=== PATIENT | female | born 1995 | race Caucasian/White ===

== ENCOUNTER 2017-08-19 16:57 | Emergency (ER) | payer OTHER, BC ==
[~2017-08-19] VITALS: Ht 170.2 cm; Wt 90.7 kg
[2017-08-19 17:11] VITALS: BP 139/88
[2017-08-19] MEDS ORDERED: IBUP800T19 PO (17:46)
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
== END 2017-08-19 17:52 | disposition home or self-care (01) ==
LOC: ER 16:57
DX: S20.212A Contusion of left front wall of thorax, initial encounter (principal); S80.12XA Contusion of left lower leg, initial encounter; S90.812A Abrasion, left foot, initial encounter; R51 Headache; Z88.8 Allergy status to other drugs, medicaments and biological substances; Z88.5 Allergy status to narcotic agent; V49.49XA Driver injured in collision with other motor vehicles in traffic accident, initial encounter; Y93.89 Activity, other specified; Y99.8 Other external cause status; Y92.89 Other specified places as the place of occurrence of the external cause
CPT/HCPCS: 99282

== ENCOUNTER 2017-08-23 19:54 | Emergency (ER) | payer BC, OTHER ==
[~2017-08-23] VITALS: Ht 170.2 cm; Wt 90.7 kg
[~2017-08-23 19:54] MED LIST: IBUP800T19 PO
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
[2017-08-23] MEDS ORDERED: CYCL-331 PO (20:42)
[2017-08-23 20:55] VITALS: BP 137/46
== END 2017-08-23 21:00 | disposition home or self-care (01) ==
LOC: ER 19:54
DX: M54.2 Cervicalgia (principal); R42 Dizziness and giddiness; Z88.8 Allergy status to other drugs, medicaments and biological substances; Z88.4 Allergy status to anesthetic agent; V49.69XA Unspecified car occupant injured in collision with other motor vehicles in traffic accident, initial encounter; Y93.89 Activity, other specified; Y99.8 Other external cause status; Y92.488 Other paved roadways as the place of occurrence of the external cause
CPT/HCPCS: 72040; 99284

== ENCOUNTER 2019-08-26 22:52 | Emergency (ER) | payer SELFPAY ==
[~2019-08-26] VITALS: Ht 170.2 cm; Wt 98.7 kg
[2019-08-26 22:52] VITALS: BP 148/89
[~2019-08-26 22:52] MED LIST changes: +CYCL-331 PO
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
== END 2019-08-27 00:05 | disposition home or self-care (01) ==
LOC: ER 22:52
DX: S90.31XA Contusion of right foot, initial encounter (principal); Z88.8 Allergy status to other drugs, medicaments and biological substances; Z88.4 Allergy status to anesthetic agent; W20.8XXA Other cause of strike by thrown, projected or falling object, initial encounter; Y93.89 Activity, other specified; Y92.89 Other specified places as the place of occurrence of the external cause; Y99.8 Other external cause status
CPT/HCPCS: 73630; 99283

== ENCOUNTER → 2019-09-16 | Outpatient (CLI) | payer BC ==
[2019-08-26 22:52] VITALS: BP 148/89
--- NOTE | 2019-09-16 11:04 | RAD ---
3 views right foot 09/16/2019 12:00 AM Indication: Reason: INJURY, RIGHT DORSAL PAIN / Spl. Instructions: / History: Comparison: None Findings: There is no acute fracture or dislocation. Articular surfaces are uninterupted and smooth. Soft tissues are unremarkable. Impression: No evidence of acute osseous abnormality. Electronically signed by: Devon Duran MD (09/16/2019 11:02 AM) [id number]
== END | disposition home or self-care (01) ==
LOC: DXRAD 10:24
PROVIDERS: ATTEND Physician Assistant
DX: M79.671 Pain in right foot (principal)
CPT/HCPCS: 73630

== ENCOUNTER 2019-10-16 06:37 | Emergency (ER) | payer BC ==
[~2019-10-16] VITALS: Ht 170.2 cm; Wt 98.7 kg
[2019-10-16 06:53] VITALS: BP 145/94
[2019-10-16] MEDS ORDERED: FAMO-63 PO (07:13)
[2019-10-16] MEDS ORDERED: PRED20TA PO (07:13)
--- NOTE | 2019-10-16 07:13 | PHYS DOC ---
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 Patient ate a food at 4:00 this morning. Patient says she had allergic reaction to garlic in the past. Patient did not realize that there was garlic in the food this morning. Patient feels scratchy in the back of her throat, denies any trouble breathing, denies any tongue swelling or trouble swallowing. Patient took 1 dose of Benadryl at work before coming here. Review of Systems: Review of Systems: Constitutional: Denies fever or chills Eyes: Denies change in visual acuity HENT: Denies nasal congestion or sore throat Respiratory: Denies cough or shortness of breath Cardiovascular: Denies chest pain or edema GI: Denies abdominal pain, nausea, vomiting, bloody stools or diarrhea : Denies dysuria Musculoskeletal: Denies back pain or joint pain Integument: Denies rash Neurologic: Denies headache, focal weakness or sensory changes Endocrine: Denies polyuria or polydipsia Lymphatic: Denies swollen glands Psychiatric: Denies depression or anxiety Heart Score: Risk Factors: Risk Factors: DM, Current or recent (<one month) smoker, HTN, HLP, family history of CAD, obesity. Risk Scores: Score 0 - 3: 2.5% MACE over next 6 weeks - Discharge Home Score 4 - 6: 20.3% MACE over next 6 weeks - Admit for Clinical Observation Score 7 - 10: 72.7% MACE over next 6 weeks - Early Invasive Strategies Current Medications: Current Meds: Current Medications Medications (Trade) Dose Ordered Sig/Sangeeta Start Time Stop Time Status Last Admin Dose Admin Diphenhydramine HCl (Benadryl) 25 mg 1X ONCE 10/16/19 07:15 10/16/19 07:16 UNV Famotidine (Pepcid) 20 mg 1X ONCE 10/16/19 07:15 10/16/19 07:16 UNV Methylprednisolone Sodium Succinate (SOLU-Medrol 125MG VIAL) 125 mg 1X ONCE 10/16/19 07:15 10/16/19 07:16 UNV Allergies: Allergies: Allergies Coded Allergies Type Severity Reaction Last Updated Verified allantoin Allergy Intermediate BLISTERS 12/16/15 Yes benzalkonium chloride Allergy Intermediate BLISTERS 12/16/15 Yes benzocaine Allergy Intermediate BLISTERS 12/16/15 Yes carbamide peroxide Allergy Intermediate BLISTERS 12/16/15 Yes zinc chloride Allergy Unknown BLISTERS 12/16/15 Yes Physical Exam: PE: Constitutional: Well developed, well nourished, no acute distress, non-toxic appearance. [] HENT: Normocephalic, atraumatic, bilateral external ears normal, oropharynx moist, no oral exudates, nose normal. There is no angioedema Eyes: PERRLA, EOMI, conjunctiva normal, no discharge. [] Neck: Normal range of motion, no tenderness, supple, no stridor. [] Cardiovascular:Heart rate regular rhythm, no murmur [] Lungs & Thorax: Bilateral breath sounds clear to auscultation [] Abdomen: Bowel sounds normal, soft, no tenderness, no masses, no pulsatile masses. [] Skin: Warm, dry, no erythema, no rash. [] Back: No tenderness, no CVA tenderness. [] Extremities: No tenderness, no cyanosis, no clubbing, ROM intact, no edema. [] Neurologic: Alert and oriented X 3, normal motor function, normal sensory function, no focal deficits noted. [] Psychologic: Affect normal, judgement normal, mood normal. [] Current Patient Data: Labs: Current Medications Medications (Trade) Dose Ordered Sig/Sangeeta Route PRN Reason Start Time Stop Time Status Last Admin Dose Admin Methylprednisolone Sodium Succinate (SOLU-Medrol 125MG VIAL) 125 mg 1X ONCE IM 10/16/19 07:15 10/16/19 07:16 10/16/19 07:13 Famotidine (Pepcid) 20 mg 1X ONCE PO 10/16/19 07:15 10/16/19 07:16 10/16/19 07:14 Diphenhydramine HCl (Benadryl) 25 mg 1X ONCE IM 10/16/19 07:15 10/16/19 07:16 10/16/19 07:13 Vital Signs: Vital Signs Date Time Temp Pulse Resp B/P (MAP) Pulse Ox O2 Delivery O2 Flow Rate FiO2 10/16/19 06:53 97.7 99 18 145/94 (111) 100 Room Air EKG: EKG: [] Radiology/Procedures: Radiology/Procedures: [] Course & Med Decision Making: Course & Med Decision Making Pertinent Labs and Imaging studies reviewed. (See chart for details) Patient is a 24-year-old female who presented to ER today for evaluation of allergic reaction after she was eating some food this morning. Patient had no respiratory distress, she had no angioedema at this time, patient was given medication in the ER, she feels much better. Patient will be discharged home. Dragon Disclaimer: Promoco Disclaimer: This electronic medical record was generated, in whole or in part, using a voice recognition dictation system. Departure Departure: Impression: Primary Impression: Allergic reaction Disposition: 01 HOME/RESIDENCE PRIOR TO ADM Condition: IMPROVED Referrals: PCP,NO (PCP) follow up with your family doctor as needed Patient Instructions: Allergies, Generic Additional Instructions: Thank you for visiting our Emergency Department. We appreciate you trusting us with your care. If any additional problems come up don't hesitate to return to visit us. Please follow up with your primary care provider so they can plan additional care if needed and know about the problem that you had. If symptoms worsen come back to the Emergency Department. Any concerning symptoms that start such as chest pain, shortness of air, weakness or numbness on one side of the body, running high fevers or any other concerning symptoms return to the ER. Scripts Famotidine (PEPCID) 20 Mg Tablet 1 TAB PO DAILY for allergy, #5 TAB 3 Refills Prov: DANNA HOGUE DO 10/16/19 Prednisone (PREDNISONE) 20 Mg Tablet 1 TAB PO DAILY for allergy, #5 TAB Prov: DANNA HOGUE DO 10/16/19 Justification of Admission: Justification of Admission: Justification of Admission Dx: N/A DANNA HOGUE DO Oct 16, 2019 07:13
[2019-10-16] MEDS ORDERED: FAMOTIDINE 20 MG TABLET PO ONE (07:15)
[2019-10-16] MEDS ORDERED: diphenhydrAMINE 50 MG/ML VIAL IM ONE (07:15)
[2019-10-16] MEDS ORDERED: methylPREDNISolone SOD SUCC PF 125 MG/2 ML VIAL. IM ONE (07:15)
== END 2019-10-16 07:35 | disposition home or self-care (01) ==
LOC: ER 06:37
DX: T78.1XXA Other adverse food reactions, not elsewhere classified, initial encounter (principal); Z88.4 Allergy status to anesthetic agent; Z88.8 Allergy status to other drugs, medicaments and biological substances; X58.XXXA Exposure to other specified factors, initial encounter
CPT/HCPCS: 96372; 99284; J1200; J2930